=== PATIENT | female | born 1965 | race Caucasian/White ===

== ENCOUNTER 2018-07-08 15:53 | Inpatient (IN) | payer OTHER ==
[~2018-07-08] VITALS: Ht 172.7 cm; Wt 104.8 kg
[2018-07-08 16:00] VITALS: BP_SYST 125
[2018-07-08 16:49] LABS: CREATININE 1.54 mg/dL (0.55-1.30)
[2018-07-08 16:50] LABS: POTASSIUM 2.7 mmol/L (3.5-5.1)
[2018-07-08 16:51] LABS: HEMATOCRIT 48.2 % (36-48); HEMOGLOBIN 15.2 g/dL (12.0-16.0); MEAN CORPUSCULAR HEMOGLOBIN 28 pg (27-31); MEAN CORPUSCULAR VOLUME 88 fL (79.0-98.0); RED BLOOD CELL COUNT(AUTO) 5.46 MIL/uL (4.2-6.2); WHITE BLOOD COUNT (AUTO) 8.1 K/uL (4.8-10.8)
[2018-07-08 16:52] LABS: BASOPHILS % (AUTO) 1.1 % (0.0-2.0); EOSINOPHILS % (AUTO) 1.1 % (0.0-4.0); LYMPHOCYTES # (AUTO) 2.5 K/uL (1.0-5.5); LYMPHOCYTES % (AUTO) 30.7 % (20.5-51.5); MEAN CORPUSCULAR HGB CONC 32 % (32-36); MONOCYTES % (AUTO) 7.8 % (1.7-9.3); NEUTROPHILS # (AUTO) 4.8 K/uL (1.8-7.7); NEUTROPHILS % (AUTO) 59.3 % (40.0-70.0); PLATELET COUNT (AUTO) 299 K/uL (130-430); RED CELL DISTRIBUTION WIDTH 17.2 % (9.0-15.0)
[2018-07-08 16:53] LABS: ALBUMIN 2.4 g/dL (3.4-4.8); BASOPHILS # (AUTO) 0.1 K/uL (0.0-0.2); EOSINOPHILS # (AUTO) 0.1 K/uL (0.0-0.4); INR 1.2 (0.8-1.2); MONOCYTES # (AUTO) 0.6 K/uL (0.0-1.0); TOTAL BILIRUBIN 1.2 mg/dL (0.0-1.0)
[2018-07-08] MEDS ORDERED: FURO-150 PO (16:57)
[2018-07-08] MEDS ORDERED: ATEN-41 PO (16:57)
[2018-07-08] MEDS ORDERED: HYDR25TA4 PO (16:57)
[2018-07-08] MEDS ORDERED: ESCI10TA PO (16:57)
[2018-07-08] MEDS ORDERED: POTASSIUM CHLORIDE 20 MEQ/PKT PACKET PO ONE (17:00)
[2018-07-08 19:08] VITALS: BP_SYST 119
[2018-07-08] MEDS: KCL 20 mEq in 100 mL (PREMIX) 100 ML IV SCH (20:41)
[2018-07-08] MEDS: FUROSEMIDE 40 MG/4 ML VIAL IVP SCH (20:53)
[2018-07-08] MEDS ORDERED: ACETAMINOPHEN 325 MG TABLET PO PRN (23:15)
[2018-07-09] MEDS: KCL 20 mEq in 100 mL (PREMIX) 100 ML IV SCH ×2 (00:26→03:50)
[2018-07-09 01:15] VITALS: BP_SYST 121
[2018-07-09 08:18] VITALS: BP_SYST 123
[2018-07-09] MEDS: CITALOPRAM HYDROBROMIDE 20 MG TABLET PO SCH (08:45)
[2018-07-09] MEDS: FUROSEMIDE 40 MG/4 ML VIAL IVP SCH ×2 (08:46→17:25)
[2018-07-09] MEDS ORDERED: ATENOLOL 25 MG TABLET(TENORMIN) PO SCH (09:00)
[2018-07-09] MEDS ORDERED: ONDANSETRON HCL 4 MG/2 ML VIAL IVP PRN (09:00)
[2018-07-09] MEDS ORDERED: LOSARTAN POTASSIUM 50 MG TABLET (COZAAR) PO ONE (09:15)
[2018-07-09 10:01] LABS: HEMATOCRIT 48.1 % (36-48); HEMOGLOBIN 15.5 g/dL (12.0-16.0); MEAN CORPUSCULAR HEMOGLOBIN 29 pg (27-31); MEAN CORPUSCULAR HGB CONC 32 % (32-36); MEAN CORPUSCULAR VOLUME 89 fL (79.0-98.0); PLATELET COUNT (AUTO) 275 K/uL (130-430); RED BLOOD CELL COUNT(AUTO) 5.38 MIL/uL (4.2-6.2); RED CELL DISTRIBUTION WIDTH 17.4 % (9.0-15.0); WHITE BLOOD COUNT (AUTO) 7.9 K/uL (4.8-10.8)
[2018-07-09 10:11] LABS: CREATININE 1.56 mg/dL (0.55-1.30); POTASSIUM 3.5 mmol/L (3.5-5.1)
[2018-07-09 10:16] LABS: ALBUMIN 2.4 g/dL (3.4-4.8); TOTAL BILIRUBIN 1.2 mg/dL (0.0-1.0)
[2018-07-09 10:21] LABS: BAND % (MANUAL) 0 % (0-6); LYMPHOCYTES % (MANUAL) 41 % (20-46)
[2018-07-09 10:22] LABS: BASOPHILS % (MANUAL) 0 % (0-2); EOSINOPHILS % (MANUAL) 1 % (0-7); MONOCYTES % (MANUAL) 8 % (0-11)
[2018-07-09 12:00] VITALS: BP_SYST 115
[2018-07-09 16:00] VITALS: BP_SYST 114
[2018-07-09 19:25] VITALS: BP_SYST 123
[2018-07-09 19:37] LABS: BILIRUBIN,URINE NEGATIVE (NEGATIVE); BLOOD, URINE NEGATIVE (NEGATIVE); CLARITY/URINE SL HAZY (CLEAR); COLOR,URINE YELLOW (YELLOW); GLUCOSE,URINE NEGATIVE (NEGATIVE); KETONES,URINE NEGATIVE (NEGATIVE); LEUKOCYTE ESTERASE ,URINE NEGATIVE (NEGATIVE); NITRITE, URINE NEGATIVE (NEGATIVE); PROTEIN URINE NEGATIVE (NEGATIVE)
[2018-07-09 20:09] LABS: BARBITURATE, URINE NEGATIVE (NEG <=200); BENZODIAZEPINE, URINE NEGATIVE (NEG <=150); CANNABINOID, URINE NEGATIVE (NEG <=50); COCAINE, URINE NEGATIVE (NEG <=150); METHAMPHETAMINES SCREEN,URINE NEGATIVE (NEG <=500); OPIATE, URINE NEGATIVE (NEG <=100); PHENCYCLIDINE SCREEN,URINE NEGATIVE (NEG <=25); UR TRICYCLIC ANTIDEPRESSANTS NEGATIVE (NEG <=300); URINE AMPHETAMINE NEGATIVE (NEG <=500); URINE METHADONE NEGATIVE (NEG <=200); URINE OXYCODONE SCREEN NEGATIVE (NEG <=100); URINE PROPOXYPHENE SCREEN NEGATIVE (NEG <=300)
[2018-07-09] MEDS: CARVEDILOL 6.25 MG TABLET (COREG) PO SCH (21:16)
[2018-07-10] VITALS (7 sets, daily range): BP systolic 105–123
[2018-07-10] MEDS: FUROSEMIDE 40 MG/4 ML VIAL IVP SCH (06:03)
[2018-07-10 07:29] LABS: CALCIUM 8.5 mg/dL (8.4-11.0); CREATININE 1.52 mg/dL (0.55-1.30); POTASSIUM 3.2 mmol/L (3.5-5.1); THYROID STIMULATING HORMONE 1.99 uIu/mL (0.34-4.82); TOTAL BILIRUBIN 0.9 mg/dL (0.0-1.0)
[2018-07-10] MEDS: CITALOPRAM HYDROBROMIDE 20 MG TABLET PO SCH (08:23)
[2018-07-10] MEDS: CARVEDILOL 6.25 MG TABLET (COREG) PO SCH ×2 (08:23→22:21)
[2018-07-10] MEDS: LOSARTAN POTASSIUM 50 MG TABLET (COZAAR) PO SCH (08:24)
[2018-07-10] MEDS: IBUPROFEN 400 MG TABLET PO PRN (08:25)
[2018-07-10 09:11] LABS: BASOPHILS # (AUTO) 0.2 K/uL (0.0-0.2); BASOPHILS % (AUTO) 1.7 % (0.0-2.0); EOSINOPHILS # (AUTO) 0.2 K/uL (0.0-0.4); EOSINOPHILS % (AUTO) 1.8 % (0.0-4.0); HEMATOCRIT 46.6 % (36-48); HEMOGLOBIN 15.2 g/dL (12.0-16.0); LYMPHOCYTES % (AUTO) 32.5 % (20.5-51.5); MEAN CORPUSCULAR HEMOGLOBIN 29 pg (27-31); MEAN CORPUSCULAR HGB CONC 33 % (32-36); MEAN CORPUSCULAR VOLUME 89 fL (79.0-98.0); MONOCYTES # (AUTO) 0.9 K/uL (0.0-1.0); NEUTROPHILS # (AUTO) 5.1 K/uL (1.8-7.7); PLATELET COUNT (AUTO) 315 K/uL (130-430); RED BLOOD CELL COUNT(AUTO) 5.23 MIL/uL (4.2-6.2); RED CELL DISTRIBUTION WIDTH 17.5 % (9.0-15.0); WHITE BLOOD COUNT (AUTO) 9.4 K/uL (4.8-10.8)
[2018-07-10] MEDS ORDERED: POTASSIUM CHLORIDE 20 MEQ/PKT PACKET PO ONE (10:45)
[2018-07-10] MEDS ORDERED: ACETYLCYSTEINE 20% 800 MG/4 ML VIAL (ORAL) PO ONE (11:00)
[2018-07-10] MEDS: 0.45% NACL 1,000 ML IV SCH (12:25)
[2018-07-10] MEDS ORDERED: ACETYLCYSTEINE 20% 800 MG/4 ML VIAL (ORAL) ONE (12:27)
[2018-07-10] MEDS ORDERED: FUROSEMIDE 20 MG/2 ML VIAL IVP SCH (18:00)
[2018-07-10] MEDS ORDERED: ACETYLCYSTEINE 20% 800 MG/4 ML VIAL (ORAL) PO SCH (21:00)
[2018-07-10] MEDS ORDERED: ACETYLCYSTEINE 20% 800 MG/4 ML VIAL (ORAL) INH SCH (22:30)
[2018-07-10] MEDS ORDERED: ACETYLCYSTEINE 20% 4 ML VIAL (RT) ONE (22:40)
[2018-07-11] MEDS: IBUPROFEN 400 MG TABLET PO PRN ×2 (00:27→20:26)
[2018-07-11] MEDS: 0.45% NACL 1,000 ML IV SCH (04:05)
[2018-07-11 06:51] LABS: CALCIUM 8.6 mg/dL (8.4-11.0); CREATININE 1.81 mg/dL (0.55-1.30); POTASSIUM 3.8 mmol/L (3.5-5.1)
[2018-07-11 07:03] LABS: TOTAL BILIRUBIN 0.9 mg/dL (0.0-1.0)
[2018-07-11 08:00] VITALS: BP_SYST 94
[2018-07-11] MEDS ORDERED: ACETYLCYSTEINE 20% 800 MG/4 ML VIAL (ORAL) INH SCH (09:00)
[2018-07-11] MEDS: LOSARTAN POTASSIUM 50 MG TABLET (COZAAR) PO SCH (09:00)
[2018-07-11 12:38] VITALS: BP_SYST 121
[2018-07-11] MEDS: POTASSIUM CHLORIDE 20 MEQ/PKT PACKET PO SCH (13:16)
[2018-07-11] MEDS: CARVEDILOL 6.25 MG TABLET (COREG) PO SCH ×2 (13:17→21:53)
[2018-07-11 16:44] VITALS: BP_SYST 116
[2018-07-11 18:10] LABS: ANTI NUCLEAR AB WITH REFLEX Negative (Negative)
[2018-07-11 20:00] VITALS: BP_SYST 111
[2018-07-12 00:26] VITALS: BP_SYST 97
[2018-07-12 04:10] VITALS: BP_SYST 120
[2018-07-12] MEDS ORDERED: FUROSEMIDE 20 MG/2 ML VIAL IVP SCH (05:00)
[2018-07-12 07:43] VITALS: BP_SYST 106
[2018-07-12] MEDS: POTASSIUM CHLORIDE 20 MEQ/PKT PACKET PO SCH (08:43)
[2018-07-12] MEDS: CARVEDILOL 6.25 MG TABLET (COREG) PO SCH (08:43)
[2018-07-12 09:42] LABS: CALCIUM 8.6 mg/dL (8.4-11.0); CREATININE 1.7 mg/dL (0.55-1.30); POTASSIUM 3.6 mmol/L (3.5-5.1)
[2018-07-12] MEDS: LOSARTAN POTASSIUM 50 MG TABLET (COZAAR) PO SCH (10:16)
[2018-07-12 12:36] VITALS: BP_SYST 112
[2018-07-12 13:41] VITALS: BP_SYST 100
[2018-07-12] MEDS ORDERED: CARV6.2554 PO (13:54)
[2018-07-15 13:09] LABS: ATYPICAL pANCA <1:20 titer (Neg:<1:20); CYTOPLASMIC (C-ANCA) <1:20 titer (Neg:<1:20); CYTOPLASMIC (P-ANCA) <1:20 titer (Neg:<1:20)
== END 2018-07-12 15:18 | disposition short-term general hospital (02) | DRG 207 ==
LOC: SED 15:53 → STU 18:37
PROVIDERS: ADMIT Internal Medicine Hospice and Palliative Medicine; ATTEND Internal Medicine Hospice and Palliative Medicine
DX: I27.20 Pulmonary hypertension, unspecified (principal); J96.01 Acute respiratory failure with hypoxia; I50.43 Acute on chronic combined systolic (congestive) and diastolic (congestive) heart failure; N17.9 Acute kidney failure, unspecified; N18.3 Chronic kidney disease, stage 3 (moderate); I42.0 Dilated cardiomyopathy; I13.0 Hypertensive heart and chronic kidney disease with heart failure and stage 1 through stage 4 chronic kidney disease, or unspecified chronic kidney disease; F10.10 Alcohol abuse, uncomplicated; E66.8 Other obesity; I27.81 Cor pulmonale (chronic); R79.1 Abnormal coagulation profile; I07.1 Rheumatic tricuspid insufficiency; Z80.1 Family history of malignant neoplasm of trachea, bronchus and lung; Z68.35 Body mass index [BMI] 35.0-35.9, adult; Z79.899 Other long term (current) drug therapy
CPT/HCPCS: 36415; 36600; 71045; 76700-TC; 78579; 78580-TC; 80048; 80053; 80061; 80307; 81003; 82550-TC; 82803-TC; 83880; 84443-TC; 84484; 84703; 85007; 85025; 85027; 85379; 85610-TC; 85730-TC; 86038; 86256; 86431; 93005; 93306; 93970; 94640; 99285; A9539; A9540; J1940; J2405; J3480; J7050; J7608